=== PATIENT | female | born 1995 | race Caucasian/White ===

== ENCOUNTER 2017-08-10 01:05 | Inpatient (IN) | payer MEDICAID ==
[~2017-08-10] VITALS: Ht 157.5 cm; Wt 61.4 kg
[2017-08-10 01:33] VITALS: Ht 157.5 cm; Wt 61.4 kg
--- NOTE | 2017-08-10 01:38 | TRIAGE ---
OB Triage Datetime Report Generated by CPN: 08/10/2017 01:37 Datetime: 08/10/2017 01:23 Pain Assessment Pain Scale: 8 Pain Goal: 3 Pain Relief Measures: Comfort Measures Pain Assessment Comments: pt. is crying, but declining pain meds/epidural Vaginal Exam Dilatation (cms): 2.5 Effacement (%): 70 Station: -2 Exam By: prabhu rn Datetime: 08/10/2017 01:16 Time of Arrival: 08/10/2017 01:03 EGA: 39.0 Arrived By: Wheelchair Arrived From: Home Chief Complaint: UC'S SINCE 1600 Movement: Present Contractions: Regular Rupture of Membranes: Denies Vaginal Bleeding: Scant Vaginal Discharge: Present Recent Sexual Intercouse: Denies Abdominal Trauma: Not Applicable Patient Complaints: Contractions Time Provider Notified: 08/10/2017 01:27 Provider Notified: REICHE Initial Plan: EFM, SVE, CALL OB Datetime: 08/10/2017 01:05 Stage of : OB Triage Assessment Type: Triage Maternal Assessment Level of Consciousness: Fully Conscious Headache: Denies Blurred Vision: No Respiratory Effort: Unlabored; Regular Rhythm; Equal Expansion Nausea/Vomiting: Denies RUQ Epigastric Pain: Denies Facial Edema: None Fall Risk Assessment History of Falling: (0) No Secondary Diagnosis: (0) No Ambulatory Aid: (0) Bedrest/Nurse Assist IV Therapy: (0) No Gait: (0) Normal/Bedrest/Immobile Mental Status: (0) Oriented to Own Ability Fall Score: 0 Fall Risk Score Definition: No Risk: No action required
[2017-08-10] MEDS ORDERED: BUTORPHANOL 2 MG INJ IV PRN (02:00)
[2017-08-10] MEDS ORDERED: OXYTOCIN 30 UNITS/LR 500 ML IV PRN (02:00)
[2017-08-10] MEDS ORDERED: OXYTOCIN 30 UNITS/LR 500 ML IV SCH ×3 (02:00)
[2017-08-10] MEDS ORDERED: CARBOPROST 250 MCG INJ IM PRN (02:00)
[2017-08-10] MEDS ORDERED: LIDOCAINE 1% (MPF) 30 ML INJ INJ PRN (02:00)
[2017-08-10] MEDS ORDERED: LACTATED RINGER'S 1,000 ML IV PRN (02:00)
[2017-08-10] MEDS ORDERED: METHYLERGONOVINE 0.2 MG INJ IM PRN (02:00)
[2017-08-10] MEDS ORDERED: OXYCODONE/ASPIRIN (4.88/325) TAB PO PRN ×3 (02:00→20:30)
[2017-08-10] MEDS ORDERED: MISOPROSTOL 200 MCG TAB PR PRN (02:00)
[2017-08-10] MEDS ORDERED: IBUPROFEN 600 MG TAB PO PRN (02:00)
[2017-08-10] MEDS: LACTATED RINGER'S 1,000 ML IV SCH ×4 (02:27→15:57)
[2017-08-10 02:54] LABS: BASOPHILS % 0.2 % (0.0-2.0); EOSINOPHILS # 0.1 10^3/ul (0.0-0.5); EOSINOPHILS % 0.7 % (0.0-7.0); HEMATOCRIT 39.1 % (37.0-47.0); HEMOGLOBIN 13.4 g/dl (12.0-16.0); LYMPHOCYTES # 1.4 10^3/ul (0.8-2.9); LYMPHOCYTES % 16.2 % (15.0-51.0); MEAN CORPUSCULAR HEMOGLOBIN 29.8 pg (29.0-33.0); MEAN CORPUSCULAR HGB CONC 34.3 g/dl (32.0-37.0); MEAN CORPUSCULAR VOLUME 87.1 fl (82.0-101.0); MEAN PLATELET VOLUME 12.2 fl (7.4-10.4); MONOCYTE # 0.6 10^3/ul (0.3-0.9); MONOCYTES % 7.4 % (0.0-11.0); NEUTROPHIL # 6.5 10^3/ul (1.6-7.5); NEUTROPHILS % 74.6 % (39.0-77.0); PLATELET COUNT 242 10^3/UL (140-415); RED BLOOD COUNT 4.49 10^6/ul (4.20-5.40); RED CELL DISTRIBUTION WIDTH 13.7 % (11.5-14.5); WHITE BLOOD COUNT 8.7 10^3/ul (4.8-10.8)
[2017-08-10] MEDS ORDERED: AMPICILLIN 2 GM/NS (PMX) 100 ML IVPB ONE (03:00)
[2017-08-10] MEDS ORDERED: AMPICILLIN 2 GM/NS (PMX) 100 ML ONE ×2 (03:01→03:06)
[2017-08-10 03:02] LABS: INR 0.8; PARTIAL THROMBOPLASTIN TIME 25.6 Sec (25.0-35.0); PROTIME 11.1 Sec (12.2-14.2); PT RATIO 0.9
[2017-08-10 04:26] LABS: BARBITURATES Negative (NEGATIVE); BENZODIAZEPINES Negative (NEGATIVE); CANNABINOIDS Negative (NEGATIVE); COCAINE Negative (NEGATIVE); OPIATES Negative (NEGATIVE)
[2017-08-10] MEDS ORDERED: AMPICILLIN 1 GM/NS (PMX) 50 ML IVPB SCH (07:00)
[2017-08-10] MEDS ORDERED: MINERAL OIL LIGHT 10 ML VIAL TOP ONE (08:00)
[2017-08-10] MEDS ORDERED: FENTAnyl 2MCG/ML-ROPIV 0.2% 100 ML ONE (10:35)
[2017-08-10] MEDS ORDERED: FENTAnyl 2MCG/ML-ROPIV 0.2% 100 ML BAG EPI SCH (12:30)
[2017-08-10] MEDS ORDERED: NALOXONE (0.4 MG/ML) INJ IV PRN (12:30)
[2017-08-10] MEDS ORDERED: DEXTROSE 5%-LR 1,000 ML IV SCH (13:30)
[2017-08-10] MEDS ORDERED: CEFTRIAXONE 1 GM INJ IVPB ONE (17:00)
[2017-08-10] MEDS ORDERED: CEFTRIAXONE 1 GM/NS 50 ML IVPB SCH (17:30)
--- NOTE | 2017-08-10 17:46 | HP ---
Date/Time of Note Date/Time of Note DATE: 08/10/17 TIME: 17:31 OB - History Hx of Present Free Text/Dictation 31 years old female admitted to [facility] in labor pelvic examination on admission cervix 7-1/2 cm dilated 100% effaced vertex at -2 station heart rate category 1 quality of contraction adequate frequency 2-5 minutes Chief Complaint: Labor contract Estimated Due Date: Aug 17, 2017 : 1 Para: 0 Care: Good Care Ultrasounds: Normal mid trimester US Obstetrical Complications: None Medical Complications: None Past Family/Social History * Past Medical, Surgical, Family and Obstetric Histories reviewed from chart. OB Admission Exam Physical Exam HEENT: WNL Heart: Rhythm Normal Abdomen: WNL Extremities: Normal Reflexes: Normal Cervical Dilatation: 7cm Effacement: 100% Station: -2 Membranes: Intact Heart Rate: 130's Accelerations: Accelerations Present Decelerations: No Decelerations Varibility: Moderate Contractions on Admission: < 5 Minutes Apart Intensity: Firm Last 72 hours Lab Results CBC & BMP 08/10/17 02:00 OB Assessment/Plan Reason for admission: active labor Plan: Other (Expectant management for normal vaginal delivery) Other plan: 21 years old EDC 08/17/2017 39 weeks on admission cervix was 7 cm dilated 100% effaced vertex at -2 station patient transferred from triage unit to L&D anticipating vaginal delivery ALEE GUTIERREZ MD Aug 10, 2017 17:43
--- NOTE | 2017-08-10 17:53 | LDN ---
Date/Time of Note Date/Time of Note DATE: 08/10/17 TIME: 17:49 Delivery Summary Normal spontaneous vaginal delivery of a baby boy from OA position shoulders delivered without any difficulty rest of the baby's body followed cord clamped after stopped pulsation placenta spontaneous expulsion inspected complete blood loss 200 cc patient sustained 2 small para urethral abrasion and small first- degree perineal laceration repaired with 4-0 chromic catgut Weeks of Gestation 39 weeks Placenta Delivered: Spontaneously Meconium: Light Episiotomy: No Perineal laceration: 1 Laceration repair: First-degree perineal laceration repaired with 4-0 chromic catgut bilateral inner labia minora paraurethral abrasion Anesthesia type: Epidural Estimated blood loss: 200 Sponge & Needle done & correct: Yes All needle counts correct: Yes Any foreign bodies felt in the: No Problems: Infant Delivery Information Sex Sex: female Apgars 1 Minute: 8 5 Minute: 9 Suctioning Nose & mouth suctioned at blanca: Yes Delee suction performed: No Umbilical Cord Umbilical cord with: 3 Vessels Cord presentations: nuchal cord Cord Blood was obtained: Yes ALEE GUTIERREZ MD Aug 10, 2017 17:53
[2017-08-10 20:30] VITALS: BP 110/60; PULSE 63; RESP 19
[2017-08-10] MEDS ORDERED: BENZOCAINE 20% 56 ML SPRAY TOP PRN (20:30)
[2017-08-10] MEDS ORDERED: WITCH HAZEL/GLYCERIN PAD PR PRN (20:30)
[2017-08-10] MEDS ORDERED: DIBUCAINE 1% 30 GM OINT PR PRN (20:30)
[2017-08-10] MEDS ORDERED: ONDANSETRON 4 MG INJ IV PRN (20:30)
[2017-08-10] MEDS ORDERED: ACETAMINOPHEN 325 MG TAB PO PRN (20:30)
[2017-08-10] MEDS ORDERED: HYDROCODONE/APAP (5/325) TAB PO PRN ×2 (20:30)
[2017-08-10] MEDS ORDERED: LANOLIN 7 GM TUBE TOP PRN (20:30)
[2017-08-10] MEDS: SENNA/DOCUSATE NA (8.6MG/50MG) TAB PO SCH (21:42)
[2017-08-10] MEDS: OXYTOCIN 30 UNITS/LR 500 ML IV SCH (21:45)
[2017-08-11] VITALS: BP 100/61; PULSE 61; RESP 18
[2017-08-11] MEDS: IBUPROFEN 600 MG TAB PO SCH ×5 (00:31→23:33)
[2017-08-11] MEDS: OXYTOCIN 30 UNITS/LR 500 ML IV SCH (02:50)
[2017-08-11 04:00] VITALS: BP 103/66; PULSE 71; RESP 18
[2017-08-11 08:00] VITALS: BP 100/61; PULSE 75; RESP 16
[2017-08-11] MEDS: SENNA/DOCUSATE NA (8.6MG/50MG) TAB PO SCH ×2 (09:12→21:14)
[2017-08-11 10:59] LABS: BASOPHILS % 0.2 % (0.0-2.0); EOSINOPHILS % 0.3 % (0.0-7.0); HEMATOCRIT 32.8 % (37.0-47.0); LYMPHOCYTES # 1.4 10^3/ul (0.8-2.9); LYMPHOCYTES % 10.5 % (15.0-51.0); MEAN CORPUSCULAR HGB CONC 33.5 g/dl (32.0-37.0); MEAN CORPUSCULAR VOLUME 89.4 fl (82.0-101.0); MEAN PLATELET VOLUME 11.6 fl (7.4-10.4); MONOCYTE # 0.6 10^3/ul (0.3-0.9); NEUTROPHIL # 10.7 10^3/ul (1.6-7.5); NEUTROPHILS % 83.5 % (39.0-77.0); PLATELET COUNT 214 10^3/UL (140-415); RED BLOOD COUNT 3.67 10^6/ul (4.20-5.40); WHITE BLOOD COUNT 12.8 10^3/ul (4.8-10.8)
[2017-08-11 11:45] VITALS: BP 103/65; PULSE 70; RESP 17
[2017-08-11 16:00] VITALS: BP 101/67; PULSE 94; RESP 18
--- NOTE | 2017-08-11 16:57 | QN ---
Documentation Comment Post normal vaginal delivery day 1 Afebrile Vital signs are stable Abdomen soft, uterus firm, lochia normal, extremity normal ALEE GUTIERREZ MD Aug 11, 2017 16:57
[2017-08-11 19:45] VITALS: BP 109/66; PULSE 80; RESP 20
[2017-08-12 03:15] VITALS: BP 98/56; PULSE 72; RESP 19
[2017-08-12] MEDS: IBUPROFEN 600 MG TAB PO SCH ×2 (05:44→11:50)
[2017-08-12 08:00] VITALS: BP 102/68; PULSE 83; RESP 17
[2017-08-12] MEDS ORDERED: MEASLES,MUMPS,RUBELLA VACCINE INJ SC* ONE (09:00)
[2017-08-12] MEDS: SENNA/DOCUSATE NA (8.6MG/50MG) TAB PO SCH (09:24)
--- NOTE | 2017-08-12 09:58 | DS ---
Date/Time of Note Date/Time of Note DATE: 08/12/17 TIME: 09:56 Discharge Summary Admission/Discharge Info Admit Date/Time Aug 10, 2017 at 01:26 Discharge Date/Time August 12, 2017 at 10 AM Discharge Diagnosis Day 2 post normal vaginal delivery Patient Condition: Good Procedures Normal vaginal delivery Hx of Present Illness Term in labor Hospital Course Satisfactory recovery uneventful Follow-up Plan instruction given recommended patient to make appointment to be seen at the clinic in 2 weeks Primary Care Provider Care Physician No Primary Time spent on discharge: < 30 minutes Pending Labs Laboratory Tests Test 08/11/17 10:17 White Blood Count 12.810^3/ul (4.8-10.8) Red Blood Count 3.6710^6/ul (4.20-5.40) Hemoglobin 11.0g/dl (12.0-16.0) Hematocrit 32.8% (37.0-47.0) Mean Corpuscular Volume 89.4fl (82.0-101.0) Mean Corpuscular Hemoglobin 30.0pg (29.0-33.0) Mean Corpuscular Hemoglobin Concent 33.5g/dl (32.0-37.0) Red Cell Distribution Width 14.0% (11.5-14.5) Platelet Count 35882^3/UL (140-415) Mean Platelet Volume 11.6fl (7.4-10.4) Neutrophils % 83.5% (39.0-77.0) Lymphocytes % 10.5% (15.0-51.0) Monocytes % 5.0% (0.0-11.0) Eosinophils % 0.3% (0.0-7.0) Basophils % 0.2% (0.0-2.0) Nucleated Red Blood Cells % 0.0/100WBC (0.0-0.0) Neutrophils # 10.710^3/ul (1.6-7.5) Lymphocytes # 1.410^3/ul (0.8-2.9) Monocytes # 0.610^3/ul (0.3-0.9) Eosinophils # 0.010^3/ul (0.0-0.5) Basophils # 0.010^3/ul (0.0-0.1) Nucleated Red Blood Cells # 0.010^3/ul (0.0-0.0) ALEE GUTIERREZ MD Aug 12, 2017 09:58
== END 2017-08-12 13:00 | disposition home or self-care (01) | DRG 775 ==
LOC: OBT 01:05 → L-D 01:10 → OBT 01:26 → PP1 20:20
PROVIDERS: ADMIT Obstetrics & Gynecology; ATTEND Obstetrics & Gynecology
PROC: 10D07Z8 Extraction of Products of Conception, Other, Via Natural or Artificial Opening (ICD-10-PCS; principal; 2017-08-10)
PROC: 0HQ9XZZ Repair Perineum Skin, External Approach (ICD-10-PCS; 2017-08-10)
DX: O70.0 First degree perineal laceration during delivery (principal); O69.81X0 Labor and delivery complicated by cord around neck, without compression, not applicable or unspecified; Z37.0 Single live birth; Z3A.39 39 weeks gestation of pregnancy
CPT/HCPCS: 62319; 80307; 85025; 85610; 85730; 86592; 86900; 86901; 87340; 99464; G0463; J0290; J0696; J2590; J3010; J7120; J7121